=== PATIENT | female | born 1995 | race Two or more races ===

== ENCOUNTER 2018-09-18 14:45 | Emergency (ER) | payer OTHER ==
[~2018-09-18] VITALS: Ht 170.2 cm; Wt 89.2 kg
--- NOTE | 2018-09-18 15:25 | NUR ---
PT AMBULATORY TO [facility] FROM TRIAGE WITH STEADY GAIT. NAD NOTED. RESP REGULAR AND UNLABORED. JJ PA AT BEDSIDE FOR EVALUATION. CALL LIGHT IN REACH. FALL PRECAUTIONS IN PLACE.
[2018-09-18 16:11] VITALS: BP 148/91
== END 2018-09-18 16:25 | disposition home or self-care (01) ==
LOC: ED 16:12
DX: J03.90 Acute tonsillitis, unspecified (principal); R00.0 Tachycardia, unspecified
CPT/HCPCS: 99283

== ENCOUNTER 2018-11-01 19:19 | Emergency (ER) | payer MEDICAID, OTHER ==
[~2018-11-01] VITALS: Ht 170.2 cm; Wt 98.0 kg
--- NOTE | 2018-11-01 20:15 | NUR ---
PT REPORTING LOWER ABD PAIN AND VB X PAST 2 DAYS. Reports she is unable to feel string for her IUD. worried it may have moved.
--- NOTE | 2018-11-01 20:53 | NUR ---
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 reports heavy discharge-to tx for STI. Reports no andres evidence of IUD relocation (performation)
[2018-11-01] MEDS ORDERED: CEFTRIAXONE 1,000 MG IM ONE (21:00)
[2018-11-01 21:03] LABS: CLUE CELLS NONE SEEN (NONE SEEN); WET PREP WBCS MODERATE (FEW)
[2018-11-01] MEDS ORDERED: CEFTRIAXONE 1,000 MG ONE (21:22)
[2018-11-01 21:31] LABS: CULTURE INDICATED? YES; MICROSCOPIC INDICATED
--- NOTE | 2018-11-01 21:35 | NUR ---
pt sitting up on gurney, monitors in place, nedicated per mar, call liht within reach
[2018-11-01 21:36] VITALS: BP 138/100
[2018-11-01] MEDS ORDERED: thyroid (21:36)
[2018-11-01] MEDS ORDERED: PROP10TA16 PO (21:36)
[2018-11-01] MEDS ORDERED: metroNIDAZOLE 500 MG TABLET ONE (22:12)
[2018-11-01] MEDS ORDERED: metroNIDAZOLE 500 MG TABLET PO ONE (22:30)
== END 2018-11-01 22:53 | disposition home or self-care (01) ==
LOC: ED 20:50
DX: A56.09 Other chlamydial infection of lower genitourinary tract (principal); A59.09 Other urogenital trichomoniasis; R10.2 Pelvic and perineal pain; E07.9 Disorder of thyroid, unspecified
CPT/HCPCS: 76830; 81001; 81025; 87086; 87147; 87210; 87491; 87591; 87808; 96372; 99284; J0696